=== PATIENT | female | born 1980 | race Caucasian/White ===

== ENCOUNTER 2017-11-15 08:06 | Inpatient (IN) | payer MEDICAID ==
[2017-11-15] MEDS ORDERED: MISOPROSTOL 200 MCG TAB PR ×2 (09:00→21:00)
[2017-11-15] MEDS ORDERED: CARBOPROST 250 MCG INJ IM ×2 (09:00→21:00)
[2017-11-15] MEDS ORDERED: OXYTOCIN 30 UNITS/LR 500 ML IV ×3 (09:00→21:00)
[2017-11-15] MEDS ORDERED: METHYLERGONOVINE 0.2 MG INJ IM ×2 (09:00→21:00)
[2017-11-15] MEDS ORDERED: IBUPROFEN 600 MG TAB PO (09:00)
[2017-11-15] MEDS: LACTATED RINGER'S 1,000 ML IV ×2 (09:08→13:16)
[2017-11-15] MEDS: OXYTOCIN 30 UNITS/LR 500 ML IV ×3 (10:09→20:57)
[2017-11-15 10:14] LABS: ADD MAN DIFF? NO
[2017-11-15 10:18] LABS: WHITE BLOOD COUNT 11.6 10^3/ul (4.8-10.8)
[2017-11-15 10:18] LABS: ABNORMAL IP MESSAGE 1; BASOPHILS % 0.3 % (0.0-2.0); EOSINOPHILS # 0.1 10^3/ul (0.0-0.5); LYMPHOCYTES # 2.6 10^3/ul (0.8-2.9); LYMPHOCYTES % 22.8 % (15.0-51.0); MEAN CORPUSCULAR HEMOGLOBIN 30.3 pg (29.0-33.0); MEAN CORPUSCULAR HGB CONC 34.2 g/dl (32.0-37.0); MEAN CORPUSCULAR VOLUME 88.6 fl (82.0-101.0); MEAN PLATELET VOLUME 13.8 fl (7.4-10.4); MONOCYTE # 1.2 10^3/ul (0.3-0.9); MONOCYTES % 9.9 % (0.0-11.0); NEUTROPHIL # 7.5 10^3/ul (1.6-7.5); NEUTROPHILS % 65.1 % (39.0-77.0); PLATELET COUNT 130 10^3/UL (140-415); RED BLOOD COUNT 4.29 10^6/ul (4.20-5.40); RED CELL DISTRIBUTION WIDTH 13.7 % (11.5-14.5)
[2017-11-15 10:21] LABS: POSITIVE DIFF @See below
[2017-11-15 10:46] LABS: INR 0.91; PROTIME 12.3 Sec (11.9-14.9)
[2017-11-15 10:47] LABS: PARTIAL THROMBOPLASTIN TIME 27.1 Sec (25.0-35.0)
[2017-11-15] MEDS: BUTORPHANOL 2 MG INJ IV (13:18)
[2017-11-15] MEDS ORDERED: BUTORPHANOL 2 MG INJ IV (13:30)
[2017-11-15 14:53] LABS: HEPATITIS B SURFACE ANTIGEN NEGATIVE (NEGATIVE)
[2017-11-15 15:07] LABS: RAPID PLASMA REAGIN NONREACTIVE (NR)
[2017-11-15] MEDS: LIDOCAINE 1% (MPF) 30 ML INJ INJ (18:55)
[2017-11-15] MEDS: LACTATED RINGER'S 1,000 ML IV* (20:57)
[2017-11-15] MEDS ORDERED: MAGNESIUM HYDROXIDE 30ML CUP PO (21:00)
[2017-11-15] MEDS ORDERED: ZOLPIDEM 5 MG TAB PO (21:00)
[2017-11-15] MEDS ORDERED: ACETAMINOPHEN 325 MG TAB PO (21:00)
[2017-11-15] MEDS ORDERED: SENNA/DOCUSATE NA (8.6MG/50MG) TAB PO (21:00)
[2017-11-15] MEDS ORDERED: DIPHENHYDRAMINE 25 MG CAP PO (21:00)
[2017-11-15] MEDS ORDERED: HYDROCODONE/APAP (5/325) TAB PO (21:00)
[2017-11-16] MEDS: LACTATED RINGER'S 1,000 ML IV* ×2 (04:57→12:57)
[2017-11-16] MEDS: IBUPROFEN 800 MG TAB PO ×4 (05:39→18:05)
[2017-11-16] MEDS: LANOLIN 7 GM TUBE TOP (05:44)
[2017-11-16] MEDS: WITCH HAZEL/GLYCERIN PAD PR (05:44)
[2017-11-16] MEDS: BENZOCAINE 20% 56 ML SPRAY TOP (05:44)
[2017-11-16 08:50] LABS: ADD MAN DIFF? NO
[2017-11-16 09:00] LABS: ABNORMAL IP MESSAGE 1; BASOPHILS % 0.2 % (0.0-2.0); HEMATOCRIT 34.1 % (37.0-47.0); HEMOGLOBIN 11.5 g/dl (12.0-16.0); LYMPHOCYTES # 0.2 10^3/ul (0.8-2.9); LYMPHOCYTES % 0.8 % (15.0-51.0); MEAN CORPUSCULAR HGB CONC 33.7 g/dl (32.0-37.0); MEAN PLATELET VOLUME 13.5 fl (7.4-10.4); MONOCYTE # 4.1 10^3/ul (0.3-0.9); MONOCYTES % 19.7 % (0.0-11.0); NEUTROPHIL # 16.1 10^3/ul (1.6-7.5); NEUTROPHILS % 78.2 % (39.0-77.0); PLATELET COUNT 121 10^3/UL (140-415); RED BLOOD COUNT 3.83 10^6/ul (4.20-5.40); RED CELL DISTRIBUTION WIDTH 13.7 % (11.5-14.5)
[2017-11-16 09:00] LABS: WHITE BLOOD COUNT 20.6 10^3/ul (4.8-10.8)
[2017-11-17] MEDS: IBUPROFEN 800 MG TAB PO ×3 (05:41→12:09)
[2017-11-17] MEDS: DIPHTH/TET/ACEL PERTUSS (ADULT) 0.5 ML VIAL IM* (09:00)
[2017-11-17] MEDS: VARICELLA VACCINE LIVE/PF 1,350 UNIT/0.5 ML ML SC* (09:00)
[2017-11-17] MEDS: MEASLES,MUMPS,RUBELLA VACCINE INJ SC* (09:00)
[2017-11-17 11:19] LABS: ADD MAN DIFF? NO
[2017-11-17 11:24] LABS: WHITE BLOOD COUNT 17.7 10^3/ul (4.8-10.8)
[2017-11-17 11:24] LABS: BASOPHIL # 0.1 10^3/ul (0.0-0.1); BASOPHILS % 0.3 % (0.0-2.0); EOSINOPHILS % 0.2 % (0.0-7.0); HEMATOCRIT 33.9 % (37.0-47.0); HEMOGLOBIN 11.3 g/dl (12.0-16.0); LYMPHOCYTES # 2.2 10^3/ul (0.8-2.9); LYMPHOCYTES % 12.4 % (15.0-51.0); MEAN CORPUSCULAR HEMOGLOBIN 29.8 pg (29.0-33.0); MEAN CORPUSCULAR HGB CONC 33.3 g/dl (32.0-37.0); MEAN CORPUSCULAR VOLUME 89.4 fl (82.0-101.0); MEAN PLATELET VOLUME 12.7 fl (7.4-10.4); MONOCYTE # 1.3 10^3/ul (0.3-0.9); MONOCYTES % 7.1 % (0.0-11.0); NEUTROPHIL # 13.9 10^3/ul (1.6-7.5); PLATELET COUNT 131 10^3/UL (140-415); RED BLOOD COUNT 3.79 10^6/ul (4.20-5.40); RED CELL DISTRIBUTION WIDTH 13.8 % (11.5-14.5)
== END 2017-11-17 15:10 | disposition home or self-care (01) | DRG 775 ==
LOC: OBT 08:06 → L-D 08:06 → OBT 08:46 → L-D 08:30 → PP1 20:18
PROVIDERS: Obstetrics & Gynecology
PROC: 10E0XZZ Delivery of Products of Conception, External Approach (ICD-10-PCS; principal; 2017-11-15)
PROC: 0HQ9XZZ Repair Perineum Skin, External Approach (ICD-10-PCS; 2017-11-15)
PROC: 4A1HXCZ Monitoring of Products of Conception, Cardiac Rate, External Approach (ICD-10-PCS; 2017-11-15)
DX: O70.0 First degree perineal laceration during delivery (principal); Z37.0 Single live birth; Z3A.39 39 weeks gestation of pregnancy
CPT/HCPCS: 85025; 85610; 85730; 86592; 86850; 86900; 86901; 87340; 90715; 90716